=== PATIENT | female | born 1970 | race Caucasian/White ===

== ENCOUNTER 2018-08-03 09:41 | Inpatient (IN) | payer MEDICAID ==
[~2018-08-03] VITALS: Ht 152.4 cm; Wt 54.9 kg
[2018-08-03] MEDS ORDERED: ACETAMINOPHEN 325MG TABLET PO STA (11:18)
[2018-08-03] MEDS ORDERED: SODIUM CHLORIDE 0.9% 1000ML BAG (SEPSIS BOLUS) IV ONE (11:30)
[2018-08-03] MEDS ORDERED: PIPERACILLIN/TAZ 3.375G PREMIX 50 ML IV ONE (12:00)
[2018-08-03] MEDS ORDERED: VANCOMYCIN 1 G PREMIX 200 ML IV ONE (12:00)
[2018-08-03 12:04] LABS: BASOPHILS % 0.3 % (0.0-2.0); EOSINOPHILS % 0.1 % (0.0-5.0); HEMATOCRIT. 39.6 % (36.0-48.0); HEMOGLOBIN. 12.9 g/dL (12.0-16.0); LYMPHOCYTES % 8.2 % (20.0-50.0); MEAN CORPUSCULAR HEMOGLOBIN 31.8 pg (28.0-32.0); MEAN CORPUSCULAR VOLUME 97.9 fL (81.0-99.0); MEAN PLATELET VOLUME 7.6 fl (7.4-10.4); MONOCYTES % 8.9 % (2.0-8.0); NEUTROPHILS % 82.5 % (40.0-76.0); PLATELET 329 x1000/uL (130-400); RED BLOOD CELL COUNT 4.04 mill/uL (4.2-5.4); RED CELL DISTRIBUTION WIDTH 13.2 % (11.6-14.6)
[2018-08-03 12:07] LABS: CHLORIDE 99 mEq/L (98-107)
[2018-08-03 12:08] LABS: INR 1.1; PROTHROMBIN TIME 11.2 sec (9.1-11.1)
[2018-08-03 12:20] LABS: CLARITY URINE CLEAR (CLEAR); COLOR URINE YELLOW (YELLOW); KETONES URINE NEGATIVE (NEGATIVE); LEUKOCYTE ESTERASE URINE NEGATIVE (NEGATIVE); NITRITE URINE NEGATIVE (NEGATIVE); OCCULT BLOOD URINE NEGATIVE (NEGATIVE); PH URINE 5.5 (4.5-8.0); PROTEIN URINE NEGATIVE (NEGATIVE); SPECIFIC GRAVITY URINE 1.013 (1.005-1.030); UROBILINOGEN URINE 0.2 E.U./dL (0.2-1.0)
[2018-08-03 16:00] VITALS: BP 104/50
[2018-08-03] MEDS ORDERED: DOCUSATE SODIUM 100MG CAPSULE PO PRN (16:45)
[2018-08-03] MEDS ORDERED: IPRATROPIUM/ALBUTEROL 0.5-3(2.5)MG/3ML NEB INH PRN (16:45)
[2018-08-03] MEDS ORDERED: DIPHENHYDRAMINE 50MG/ML VIAL IV PRN (16:45)
[2018-08-03] MEDS ORDERED: MAGNESIUM/ALUMINUM HYDROXIDE/SIMETHICONE 30ML UDC PO PRN (16:45)
[2018-08-03] MEDS ORDERED: CLONIDINE 0.1MG TABLET PO PRN (16:45)
[2018-08-03] MEDS ORDERED: HYDROCODONE/ACETAMINOPHEN 5/325MG TABLET PO PRN (16:45)
[2018-08-03] MEDS ORDERED: ONDANSETRON HCL 4MG/2ML INJ IV PRN (16:45)
[2018-08-03] MEDS: SODIUM CHLORIDE 0.9% 1,000 ML IV SCH (17:02)
[2018-08-03] MEDS: ACETAMINOPHEN 325MG TABLET PO PRN (17:04)
[2018-08-03] MEDS: ENOXAPARIN 40MG/0.4ML SYR SUBCUT SCH (17:05)
[2018-08-03] MEDS: GUAIFENESIN 200MG/10ML SUGAR FREE UDC PO PRN (17:05)
[2018-08-03 17:13] LABS: PHOSPHORUS 3.7 mg/dL (2.5-4.9)
[2018-08-03 17:35] LABS: HEPATITIS B SURFACE ANTIGEN NEGATIVE
[2018-08-03 18:05] LABS: HEPATITIS A AB IGM NEGATIVE (NEGATIVE)
[2018-08-03] MEDS ORDERED: PNEUMOCOCCAL 23-VAL P-SAC VAC 0.5 ML IM ONE (18:30)
[2018-08-03] MEDS ORDERED: INFLUENZA VIRUS VACCINE(AFLURIA) 0.5ML SYR IM ONE (18:30)
[2018-08-03] MEDS: MORPHINE SULFATE 4 MG/ML CPJ (NOT FOR IM USE) IV PRN ×2 (18:32→22:08)
[2018-08-03] MEDS ORDERED: HYDR-4009 MT (19:32)
[2018-08-03] MEDS ORDERED: SULF500T8 MT (19:32)
[2018-08-03] MEDS ORDERED: HYDR200T35 MT (19:32)
[2018-08-03] MEDS ORDERED: PRED10TA23 MT (19:32)
[2018-08-03] MEDS ORDERED: FOLI20CA MT (19:32)
[2018-08-03 20:00] VITALS: BP 116/80
[2018-08-04] VITALS: BP_SYST 117; BP_SYST 118; BP_DIAS 72; BP_DIAS 77
[2018-08-04 01:10] LABS: CREATINE KINASE 671 IU/L (26-192)
[2018-08-04] MEDS: MORPHINE SULFATE 4 MG/ML CPJ (NOT FOR IM USE) IV PRN ×4 (02:10→16:06)
[2018-08-04] MEDS: GUAIFENESIN 200MG/10ML SUGAR FREE UDC PO PRN (02:39)
[2018-08-04 04:00] VITALS: BP 118/77
[2018-08-04 07:07] LABS: BASOPHILS % 0.3 % (0.0-2.0); EOSINOPHILS % 0.1 % (0.0-5.0); HEMATOCRIT. 36.9 % (36.0-48.0); HEMOGLOBIN. 11.8 g/dL (12.0-16.0); LYMPHOCYTES % 19.2 % (20.0-50.0); MEAN CORPUSCULAR HEMOGLOBIN 31.4 pg (28.0-32.0); MEAN CORPUSCULAR VOLUME 97.8 fL (81.0-99.0); MEAN PLATELET VOLUME 7.6 fl (7.4-10.4); MONOCYTES % 12.8 % (2.0-8.0); NEUTROPHILS % 67.6 % (40.0-76.0); PLATELET 291 x1000/uL (130-400); RED BLOOD CELL COUNT 3.77 mill/uL (4.2-5.4); RED CELL DISTRIBUTION WIDTH 13.5 % (11.6-14.6)
[2018-08-04 08:00] VITALS: BP 117/72
[2018-08-04 08:34] LABS: CHLORIDE 105 mEq/L (98-107)
[2018-08-04] MEDS: ACETAMINOPHEN 325MG TABLET PO PRN (08:34)
[2018-08-04 09:13] LABS: LDL CHOLESTEROL 69 mg/dL (5-100)
[2018-08-04 09:15] LABS: CREATINE KINASE 910 IU/L (26-192)
[2018-08-04 09:16] LABS: HDL CHOLESTEROL 55 mg/dL (40-59)
[2018-08-04] MEDS ORDERED: HYDROMORPHONE HCL/PF 2MG/ML CPJ IV PRN (11:00)
[2018-08-04 12:00] VITALS: BP 115/72
[2018-08-04] MEDS ORDERED: POTASSIUM CHLORIDE 20MEQ TABLET SR PO NR (14:30)
[2018-08-04] MEDS: SODIUM CHLORIDE 0.9% 1,000 ML IV SCH (15:49)
[2018-08-04 16:00] VITALS: BP 127/67
[2018-08-04] MEDS: ENOXAPARIN 40MG/0.4ML SYR SUBCUT SCH (18:56)
[2018-08-04 20:13] VITALS: BP 127/82
[2018-08-04] MEDS: ZOLPIDEM TARTRATE 5MG TABLET PO PRN (23:12)
[2018-08-05] VITALS: BP 124/86
[2018-08-05] MEDS: HYDROMORPHONE HCL/PF 2MG/ML CPJ IM PRN ×6 (00:50→21:59)
[2018-08-05 04:00] VITALS: BP 121/82
[2018-08-05] MEDS: ACETAMINOPHEN 325MG TABLET PO PRN (04:55)
[2018-08-05 07:53] LABS: BASOPHILS % 0.3 % (0.0-2.0); HEMATOCRIT. 37.9 % (36.0-48.0); HEMOGLOBIN. 12.4 g/dL (12.0-16.0); LYMPHOCYTES % 18.2 % (20.0-50.0); MEAN CORPUSCULAR HEMOGLOBIN 31.9 pg (28.0-32.0); MEAN CORPUSCULAR VOLUME 97.8 fL (81.0-99.0); MEAN PLATELET VOLUME 7.7 fl (7.4-10.4); MONOCYTES % 8.6 % (2.0-8.0); NEUTROPHILS % 72.9 % (40.0-76.0); PLATELET 300 x1000/uL (130-400); RED BLOOD CELL COUNT 3.88 mill/uL (4.2-5.4); RED CELL DISTRIBUTION WIDTH 13.2 % (11.6-14.6)
[2018-08-05 08:00] VITALS: BP 126/81
[2018-08-05 08:17] LABS: HIV SCREEN 4G Non Reactive (Non Reactive)
[2018-08-05 08:39] LABS: CHLORIDE 106 mEq/L (98-107)
[2018-08-05] MEDS: LEVOFLOXACIN 750MG PREMIX 150 ML IV SCH (08:47)
[2018-08-05] MEDS: METRONIDAZOLE 500 MG PREMIX 100 ML IV SCH ×2 (08:47→18:18)
[2018-08-05 12:00] VITALS: BP 102/80
[2018-08-05 15:43] VITALS: BP 96/73
[2018-08-05 20:00] VITALS: BP 124/81
[2018-08-05] MEDS: ZOLPIDEM TARTRATE 5MG TABLET PO PRN (22:06)
[2018-08-06] VITALS: BP 109/75
[2018-08-06] MEDS: HYDROMORPHONE HCL/PF 2MG/ML CPJ IM PRN ×3 (01:58→09:53)
[2018-08-06] MEDS: METRONIDAZOLE 500 MG PREMIX 100 ML IV SCH ×3 (02:01→17:03)
[2018-08-06] MEDS: METHYLPREDNISOLONE SOD SUCC 40 MG/ML VIAL IV SCH ×4 (02:05→17:03)
[2018-08-06 04:00] VITALS: BP 108/79
[2018-08-06 06:41] LABS: BASOPHILS % 0.2 % (0.0-2.0); HEMATOCRIT. 40.9 % (36.0-48.0); HEMOGLOBIN. 13.2 g/dL (12.0-16.0); LYMPHOCYTES % 13.9 % (20.0-50.0); MEAN CORPUSCULAR HEMOGLOBIN 31.3 pg (28.0-32.0); MEAN CORPUSCULAR VOLUME 97.4 fL (81.0-99.0); MEAN PLATELET VOLUME 7.8 fl (7.4-10.4); MONOCYTES % 2.4 % (2.0-8.0); NEUTROPHILS % 83.5 % (40.0-76.0); PLATELET 347 x1000/uL (130-400); RED CELL DISTRIBUTION WIDTH 13.2 % (11.6-14.6)
[2018-08-06 07:15] LABS: CHLORIDE 106 mEq/L (98-107)
[2018-08-06 07:42] LABS: CREATINE KINASE 2045 IU/L (26-192)
[2018-08-06 08:00] VITALS: BP 103/65
[2018-08-06] MEDS: HYDROXYCHLOROQUINE SULFATE 200MG TABLET PO SCH ×2 (09:36→17:04)
[2018-08-06] MEDS: LEVOFLOXACIN 750MG PREMIX 150 ML IV SCH (09:37)
[2018-08-06] MEDS: CELECOXIB 200MG CAPSULE PO SCH ×2 (09:52→17:04)
[2018-08-06 12:00] VITALS: BP 110/79
[2018-08-06] MEDS: FOLIC ACID 1MG TABLET PO SCH (12:52)
[2018-08-06] MEDS: HYDROMORPHONE HCL/PF 2MG/ML CPJ IV PRN ×2 (15:22→19:40)
[2018-08-06 16:00] VITALS: BP 121/79
[2018-08-06] MEDS ORDERED: SODIUM CHLORIDE 0.9% 1,000 ML IV SCH (17:45)
[2018-08-06] MEDS ORDERED: IPRATROPIUM/ALBUTEROL 0.5-3(2.5)MG/3ML NEB HHN PRN (18:00)
[2018-08-06 20:00] VITALS: BP 132/82
[2018-08-06] MEDS: ZOLPIDEM TARTRATE 5MG TABLET PO PRN (22:15)
[2018-08-07] VITALS: BP 132/89
[2018-08-07] MEDS: METHYLPREDNISOLONE SOD SUCC 40 MG/ML VIAL IV SCH ×3 (00:20→13:05)
[2018-08-07] MEDS: METRONIDAZOLE 500 MG PREMIX 100 ML IV SCH ×2 (00:20→10:31)
[2018-08-07] MEDS: HYDROCODONE/ACETAMINOPHEN 5/325MG TABLET PO PRN ×2 (00:21→10:31)
[2018-08-07 04:00] VITALS: BP 125/87
[2018-08-07] MEDS: HYDROMORPHONE HCL/PF 2MG/ML CPJ IV PRN ×2 (04:06→13:08)
[2018-08-07 07:24] LABS: CHLORIDE 105 mEq/L (98-107)
[2018-08-07 07:34] LABS: GAMMA GLUTAMYL TRANSPEPTIDASE 87 IU/L (7-32); T4 FREE 1.13 ng/dL (0.76-1.46)
[2018-08-07 07:48] LABS: CREATINE KINASE 1340 IU/L (26-192)
[2018-08-07 07:59] LABS: BASOPHILS % 0.1 % (0.0-2.0); HEMATOCRIT. 38.7 % (36.0-48.0); HEMOGLOBIN. 12.4 g/dL (12.0-16.0); LYMPHOCYTES % 15.2 % (20.0-50.0); MEAN CORPUSCULAR HEMOGLOBIN 31.1 pg (28.0-32.0); MEAN CORPUSCULAR VOLUME 97.2 fL (81.0-99.0); MEAN PLATELET VOLUME 7.8 fl (7.4-10.4); MONOCYTES % 6.4 % (2.0-8.0); NEUTROPHILS % 78.3 % (40.0-76.0); PLATELET 356 x1000/uL (130-400); RED BLOOD CELL COUNT 3.98 mill/uL (4.2-5.4); RED CELL DISTRIBUTION WIDTH 12.9 % (11.6-14.6)
[2018-08-07 08:00] VITALS: BP 111/97
[2018-08-07] MEDS: CELECOXIB 200MG CAPSULE PO SCH ×2 (08:42→16:40)
[2018-08-07] MEDS: HYDROXYCHLOROQUINE SULFATE 200MG TABLET PO SCH ×2 (08:42→16:40)
[2018-08-07] MEDS: LEVOFLOXACIN 750MG PREMIX 150 ML IV SCH (08:43)
[2018-08-07] MEDS: FOLIC ACID 1MG TABLET PO SCH (08:43)
[2018-08-07 12:00] VITALS: BP 117/79
[2018-08-07] MEDS ORDERED: HYDROCODONE/ACETAMINOPHEN 10/325MG TABLET PO PRN (15:15)
[2018-08-07] MEDS ORDERED: POTASSIUM CHLORIDE 20MEQ TABLET SR PO NR ×2 (15:15→15:30)
[2018-08-07 16:00] VITALS: BP 123/97
[2018-08-07 16:53] VITALS: BP 123/81
[2018-08-10 09:06] LABS: ALDOLASE 10.4 U/L (3.3-10.3); ANTI-DNA DOUBLE STRANDED QUANT 2 IU/mL (0-9); COMPLEMENT C3 169 mg/dL (82-167)
[2018-08-10 13:06] LABS: ACTIN (SMOOTH MUSCLE) ANTIBODY 57 Units (0-19); ANTI-MYELOPEROXIDASE AB < 9.0 U/mL (0.0-9.0); ANTI-PROTEINASE 3 ABS < 3.5 U/mL (0.0-3.5); MITOCHONDRIAL M2 AB <20.0 Units (0.0-20.0)
[2018-08-10 17:06] LABS: ANA IFA Negative (.)
[2018-08-10 19:06] LABS: CYC CITRULLINATED PEP IgG/IgA > 250 units (0-19)
[2018-08-11 10:06] LABS: ANTI-PARIETAL CELL AB 1.9 Units (0.0-20.0)
[2018-08-11 13:06] LABS: ATYPICAL P-ANCA <1:20 titer (Neg:<1:20); CYTOPLASMIC C-ANCA <1:20 titer (Neg:<1:20); PERINUCLEAR P-ANCA <1:20 titer (Neg:<1:20)
== END 2018-08-07 17:52 | disposition home or self-care (01) | DRG 720 ==
LOC: ER 09:41 → 6EST 13:44 → EDBEDREQSVC 13:46 → EDBEDREQ 13:46 → ENRESERV 15:07
PROVIDERS: ADMIT Internal Medicine; ATTEND Internal Medicine
DX: A41.9 Sepsis, unspecified organism (principal); J96.00 Acute respiratory failure, unspecified whether with hypoxia or hypercapnia; M62.82 Rhabdomyolysis; J18.9 Pneumonia, unspecified organism; M05.10 Rheumatoid lung disease with rheumatoid arthritis of unspecified site; I77.6 Arteritis, unspecified; J45.909 Unspecified asthma, uncomplicated; N32.89 Other specified disorders of bladder; Z96.653 Presence of artificial knee joint, bilateral; M60.9 Myositis, unspecified; Z88.2 Allergy status to sulfonamides; Z79.899 Other long term (current) drug therapy
CPT/HCPCS: 36415; 71045; 71250; 76700; 80048; 80061; 80076; 82085; 82550; 82955; 82977; 83516; 83520; 83605; 83735; 84100; 84145; 84439; 84443; 85041; 85651; 86060; 86140; 86160; 86200; 86225; 86235; 86256; 86431; 86705; 86709; 86803; 87340; 87389; 87804; 90686; 90732; 93005; 93970; 96365; 96366; 97162; 97166; 97530; 99285; C1893; J1170; J1650; J1956; J2270; J2543; J2920; J3370; J3490; J7030; J7040